=== PATIENT | male | born 1990 | race Caucasian/White ===

== ENCOUNTER 2017-02-25 18:57 | Emergency (ER) | payer MEDICAID ==
[~2017-02-25 18:57] MED LIST: CIPROFLOXACIN500 MG PO; FLA500 PO
[2017-02-25 21:38] VITALS: BP 128/72
== END 2017-02-25 21:38 | disposition home or self-care (01) ==
LOC: ED 18:57
DX: K29.70 Gastritis, unspecified, without bleeding (principal)